=== PATIENT | female | born 1940 | race Caucasian/White ===

== ENCOUNTER 2016-04-25 14:23 | Emergency (ER) | payer OTHER, MEDICARE ==
[~2016-04-25 14:23] MED LIST: AMOXIL500 MG PO; COZAAR 100MG T100 MG PO; ESCITALOPRAM10 MG PO; GLIPIZIDE AND M1 TA2 PO; JANUVIA 100MG100 MG PO; METFORMIN1000 MG PO; PRAVASTATIN20 MG PO; SINEMET 25-2501 TAB PO
--- NOTE | 2016-04-25 14:43 | ED AMS/SEIZURE/WEAK/DIZZY ---
History of Present Illness General Chief Complaint: General Adult Stated Complaint: BIBA WEAKNESS Source: family, old records Exam Limitations: clinical condition Vital Signs & Intake/Output Vital Signs & Intake/Output Vital Signs Date Time Temp Pulse Resp B/P Pulse O2 O2 Flow FiO2 Ox Delivery Rate 04/25 1757 97.5 78 18 172/74 95 Room Air Room Air 04/25 1439 97.5 77 18 192/72 94 Room Air Allergies Uncoded Allergies: PET DANDER (11/08/13) Reconcile Medications Amoxicillin/Potassium Clav (Augmentin 875-125 Tablet) 875 MG-125 MG TABLET 1 TAB PO BID UTI Aspirin (Ecotrin*) 81 MG TABLET.DR 1 TAB PO DAILY HEART/BLOOD (Reported) Atenolol 50 MG TABLET 1 TAB PO DAILY BP (Reported) Carbidopa/Levodopa (Carbidopa-Levodopa 25-250 Tab) 25 MG-250 MG TABLET 1 TAB PO BID PARKINSONS (Reported) Escitalopram Oxalate 10 MG TABLET 1 TAB PO DAILY MENTAL HEALTH (Reported) Furosemide 20 MG TABLET 1 TAB PO PRN DIURETIC (Reported) Lactobacillus Acidophilus (Probiotic) (Unknown Strength) CAPSULE (Unknown Dose ) PO DAILY PROBIOTIC (Reported) Losartan Potassium 100 MG TABLET 1 TAB PO DAILY BP (Reported) Lubiprostone (Amitiza) 24 MCG CAPSULE 1 CAP PO PRN CONSTIPATION (Reported) Metformin HCl 1,000 MG TABLET 1 TAB PO BID DM (Reported) Pioglitazone HCl 45 MG TABLET 1 TAB PO DAILY DM (Reported) Pravastatin Sodium 20 MG TABLET 1 TAB PO DAILY CHOLESTEROL (Reported) Sennosides/Docusate Sodium (Senna S Tablet) 8.6 MG-50 MG TABLET 2 TAB PO DAILY GI (Reported) Sitagliptin Phosphate (Januvia) 100 MG TABLET 1 TAB PO DAILY DM (Reported) Triage Nurses Notes Reviewed? yes Onset: Abrupt Duration: constant Timing: single episode today Injury Environment: home Severity: moderate Severity Numbers: 5 No Modifying Factors: none HPI: Patient is a 76-year-old female with a past medical history Parkinson's who uses a walker to ambulate, hypertension multiple UTI who presents emergency brought in by ambulance for concerns of a fall. Patient and family members state that she was in a seated position today tried to stand up and walk however patient fell onto her buttock region and no pain had occurred in which patient called [facility] and which EMS brought patient in for further evaluation treatment. Patient currently offers no pain denies any head strike neck pain back pain abdominal pain extremity pain. Patient also denies any preceding dizziness or lightheaded sensation. Family states that patient currently is acting baseline at upon her presentation in the emergency room (AUNDREA DIXON) Past History Travel History Traveled to [place] past 21 day No Medical History Any Pertinent Medical History? see below for history Cardiovascular: hypertension Other Medical Hx: Parkinson's Surgical History Surgical History: non-contributory Psychosocial History What is your primary language Kazakh Family History Hx Contributory? No (AUNDREA DIXON) Review of Systems Review of Systems Constitutional: Reports: no symptoms. EENTM: Reports: no symptoms. Respiratory: Reports: no symptoms. Cardiovascular: Reports: no symptoms. GI: Reports: no symptoms. Genitourinary: Reports: no symptoms. Musculoskeletal: Reports: no symptoms. Skin: Reports: no symptoms. Neurological/Psychological: Reports: no symptoms. Hematologic/Endocrine: Reports: no symptoms. Immunologic/Allergic: Reports: no symptoms. All Other Systems: Reviewed and Negative (AUNDREA DIXON) Physical Exam Physical Exam General Appearance: no apparent distress, alert, comfortable Comments: Well-developed well-nourished person in no acute distress HEENT: Normal EENT exam, extraocular motion intact, no nystagmus. Pupils equally round and reactive to light and accommodation. Nose is atraumatic. External auditory canal and Tympanic membranes clear. Pharynx normal. No swelling or edema. Neck: Supple, no lymphadenopathy, normal range of motion without pain or tenderness No central spinous tenderness Back: Nontender, no CVA tenderness. No central spinous tenderness Cardiovascular: Regular rate and rhythms no murmurs rubs or gallops, normal JVP Respiratory: Chest nontender. No respiratory distress.breath sounds clear to auscultation bilaterally Abdomen: Soft, nontender nondistended, no appreciable organomegaly. Normal bowel sounds. No ascites Extremity: No edema, no calf tenderness to palpation, normal and equal pulses. Neuro: Alert oriented x3, motor sensory normal, cranial nerves II through XII grossly intact. Skin: No appreciable rash on exposed skin, skin is warm and dry. Psych: Mood and affect is normal, memory and judgment is normal. Core Measures ACS in differential dx? No CVA/TIA Diagnosis: No Severe Sepsis Present: No Septic Shock Present: No (AUNDREA DIXON) Progress Differential Diagnosis: arrythmia, anemia, benign positional vertigo, CVA/stroke , dehydration, drug intoxication, encephalitis, electrolyte imbalance, GI bleed, hypoglycemia, hypoxia, intracranial Hem., intracranial mass/tumor, labrynthitis, meningitis, Meniere's disease, migraine BABCOCK, multiple sclerosis, pneumonia, postural hypotension, presyncope, post-traumatic vertigo, sepsis, seizure disorder, subarachnoid Hem., UTI/pyelo, vertebrobasilar insuff Plan of Care: Orders Procedure Date/time Status Add-on Test (ER Only) 04/25 1758 Active CULTURE,URINE 04/25 163 Active CREATINE PHOSPHOKINASE 04/25 153 Complete URINALYSIS 04/25 144 Complete TROPONIN LEVEL 04/25 144 Complete AMMONIA 04/25 144 Complete COMPREHENSIVE METABOLIC PANEL 04/25 144 Complete CBC WITHOUT DIFFERENTIAL 04/25 1442 Complete EKG 04/25 144 Active Laboratory Tests 04/25/16 1633: Urine Color YEL, Urine Clarity HAZY H, Urine pH 6.0, Ur Specific [place] 1.020, Urine Protein TRACE H, Urine Ketones TRACE H, Urine Nitrite POS H, Urine Bilirubin NEG, Urine Urobilinogen 0.2, Ur Leukocyte Esterase MOD H, Ur Microscopic SEDIMENT EXAMINED, Urine RBC 3-5, Urine WBC 15-25 H, Ur Epithelial Cells FEW, Urine Bacteria PACKD H, Urine Hemoglobin SMALL H, Urine Glucose NEG 04/25/16 1532: Anion Gap 11, Estimated GFR > 60, BUN/Creatinine Ratio 43.3 H, Glucose 244 H, Calcium 9.9, Total Bilirubin 0.7, AST 24, ALT 20, Alkaline Phosphatase 89, Ammonia < 9 L, Creatine Kinase 403 H, Troponin I 0.02, Total Protein 7.4, Albumin 4.4, Globulin 3.0, Albumin/Globulin Ratio 1.5, CBC w Diff NO MAN DIFF REQ, RBC 4.05 L, MCV 86.6, MCH 28.1, RDW 15.9 H, MPV 8.6, Gran % 83.5 H, Lymphocytes % 9.1 L, Monocytes % 6.9, Eosinophils % 0.3, Basophils % 0.2, Absolute Granulocytes 5.8, Absolute Lymphocytes 0.6 L, Absolute Monocytes 0.5, Absolute Eosinophils 0, Absolute Basophils 0, PUBS MCHC 32.4 L 04/25/16 1444: Creatine Kinase Cancelled Microbiology 04/25 1737 URINE ROUT: Urine Culture - CAN Cancelled: 04/25 1635 URINE ROUT: Urine Culture - RECD NIH stroke scale 0. Patient had unremarkable lab urinalysis noted urine infection which it is noted through old records the patient has had susceptibility from previous infections with Augmentin. This was prescribed. Case management also evaluate patient in which they will call patient tomorrow for possible home health care services. Patient was able to weight-bear without pain Patient upon discharge has no complaints discussed disposition plan with family member who agreed (FREDERICK ACOSTA,AUNDREA) Diagnostic Imaging: Viewed by Me: CT Scan. Radiology Impression: no acute abnormality Initial ED EKG: normal p-waves, normal QRS complex, normal sinus rhythm Comments: PATIENT: KAMILLE MORTENSEN PRESENT AGE: 76 PATIENT ACCOUNT NO: [id number] : 39 LOCATION: [facility] ORDERING PHYSICIAN: AUNDREA ACOSTA SERVICE DATE: 04/25/16 EXAM TYPE: CAT - CT HEAD WO IV CONTRAST EXAMINATION: CT HEAD WITHOUT CONTRAST CLINICAL INFORMATION: Altered mental status. COMPARISON: None. TECHNIQUE: Contiguous axial imaging was performed from the skull base to vertex without intravenous administration of contrast. DLP: 600 mGy-cm FINDINGS: No acute intracranial abnormality. No acute intracranial hemorrhage, mass or mass effect or abnormal extra-axial fluid collections. The density within the dural venous sinuses is within normal limits. The ventricles are normal in size, without hydrocephalus. There are no focal areas of hypoattenuation within a vascular distribution to suggest acute transcortical ischemia. The basilar cisterns are patent. No acute calvarial abnormality is identified. Soft tissues appear unremarkable. The imaged paranasal sinuses and mastoid air cells are well aerated. IMPRESSION: No acute intracranial abnormality. (AUNDREA DIXON) Departure Departure Disposition: HOME OR SELF CARE Condition: Stable Clinical Impression Primary Impression: Fall Secondary Impressions: UTI (urinary tract infection) Referrals: Jarod JACKSON MD (PCP/Family) Additional Instructions: As discussed begin the prescription of Augmentin as directed for the full course. Follow-up with your primary care doctor next week for recheck of urine. Continue home medications and the walker for fall prevention's. If symptoms worsen return to emergency room. Prescription is waiting a [facility] pharmacy. YOU will receive a phone call from case management in the following few days for follow-up with the home health care services Departure Forms: Customer Survey General Discharge Information Prescriptions: Current Visit Scripts Amoxicillin/Potassium Clav (Augmentin 875-125 Tablet) 1 TAB PO BID #20 TAB (AUNDREA DIXON) PA/[employer]IST Co-Sign Statement Statement: ED Attending supervision documentation- [X] I saw and evaluated the patient. I have also reviewed all the pertinent lab results and diagnostic results. I agree with the findings and the plan of care as documented in the PA's/[employer]IST's documentation. [X] I have reviewed the ED Record and agree with the PA's/[employer]IST's documentation. [] Additions or exceptions (if any) to the PAs/[employer] SPECIALIST's note and plan are summarized below: [] (KJ BUTLER,ASRIAH Keith)
--- NOTE | 2016-04-25 15:26 | CT SCAN REPORT ---
EXAMINATION: CT HEAD WITHOUT CONTRAST CLINICAL INFORMATION: Altered mental status. COMPARISON: None. TECHNIQUE: Contiguous axial imaging was performed from the skull base to vertex without intravenous administration of contrast. DLP: 600 mGy-cm FINDINGS: No acute intracranial abnormality. No acute intracranial hemorrhage, mass or mass effect or abnormal extra-axial fluid collections. The density within the dural venous sinuses is within normal limits. The ventricles are normal in size, without hydrocephalus. There are no focal areas of hypoattenuation within a vascular distribution to suggest acute transcortical ischemia. The basilar cisterns are patent. No acute calvarial abnormality is identified. Soft tissues appear unremarkable. The imaged paranasal sinuses and mastoid air cells are well aerated. IMPRESSION: No acute intracranial abnormality.
[2016-04-25 15:54] LABS: ABSOLUTE BASOPHIL COUNT 0 /CUMM (0.0-0.2); ABSOLUTE EOSINOPHIL COUNT 0 /CUMM (0.0-0.7); ABSOLUTE GRANULOCYTE CT 5.8 /CUMM (1.4-6.5); ABSOLUTE LYMPH COUNT 0.6 /CUMM (1.2-3.4); ABSOLUTE MONOCYTE COUNT 0.5 /CUMM (0.10-0.60); BASOPHIL % 0.2 % (0.0-2.0); EOSINOPHIL % 0.3 % (0-5); GRANULOCYTE % 83.5 % (42.2-75.2); HEMATOCRIT 35.1 % (37-47); MEAN CORPUSCULAR HGB 28.1 PG (27.0-31.0); MEAN CORPUSCULAR HGB CONC 32.4 G/DL (33.0-37.0); MEAN CORPUSCULAR VOLUME 86.6 FL (81.0-99.0); MEAN PLATELET VOLUME 8.6 FL (7.4-10.4); PLATELET COUNT 250 /CUMM (130-400); RBC DISTRIBUTION WIDTH 15.9 % (11.5-14.5); RED BLOOD CELL CT 4.05 /CUMM (4.20-5.40); WHITE BLOOD CELL COUNT 6.9 /CUMM (4.8-10.8)
[2016-04-25] MEDS ORDERED: LOSARTAN POTAS100 M1 PO (17:05)
[2016-04-25] MEDS ORDERED: PIOGLITAZONE HC45 M1 PO (17:05)
[2016-04-25] MEDS ORDERED: PRAVASTATIN SOD20 M2 PO (17:05)
[2016-04-25] MEDS ORDERED: JANUVIA100 M1 PO (17:05)
[2016-04-25] MEDS ORDERED: METFORMIN HCL1000 M1 PO (17:06)
[2016-04-25] MEDS ORDERED: CARBIDOPA-LEVO1 EAC8 PO (17:06)
[2016-04-25] MEDS ORDERED: ATENOLOL50 M1 PO (17:06)
[2016-04-25] MEDS ORDERED: ASPIRIN EC81 M1 PO (17:07)
[2016-04-25] MEDS ORDERED: ESCITALOPRAM OX10 MG PO (17:07)
[2016-04-25] MEDS ORDERED: FUROSEMIDE20 M1 PO (17:08)
[2016-04-25] MEDS ORDERED: PROBIOTIC1 EACH PO (17:09)
[2016-04-25] MEDS ORDERED: AMITIZA24 MC1 PO (17:09)
[2016-04-25] MEDS ORDERED: SENNA S TABLET1 EACH PO (17:10)
[2016-04-25] MEDS ORDERED: AUGMENTIN 875-1 EACH PO (17:42)
[2016-04-25 17:57] VITALS: BP 172/74
== END 2016-04-25 17:58 ==
LOC: ERH 14:23
PROVIDERS: Physician Assistant
DX: Z04.3 Encounter for examination and observation following other accident (principal); N39.0 Urinary tract infection, site not specified; G20 Parkinson's disease; I10 Essential (primary) hypertension; W19.XXXA Unspecified fall, initial encounter; Y93.01 Activity, walking, marching and hiking; Y92.9 Unspecified place or not applicable
CPT/HCPCS: 81001; 87086; 93005; 93010